=== PATIENT | female | born 1945 | race Caucasian/White ===

== ENCOUNTER 2022-06-09 08:57 | Inpatient (IN) | payer MEDICARE, OTHER ==
[~2022-06-09] VITALS: Ht 154.9 cm; Wt 68.0 kg
[2022-06-09] MEDS ORDERED: DILT180C90 PO (09:23)
[2022-06-09] MEDS ORDERED: FURO80TA3 PO (09:23)
[2022-06-09] MEDS ORDERED: LOSA100T31 PO (09:23)
[2022-06-09] MEDS ORDERED: AMLO-212 PO (09:23)
[2022-06-09] MEDS ORDERED: POTA10CA43 PO (09:23)
[2022-06-09] MEDS ORDERED: APIX5TAB4 PO (09:23)
[2022-06-09] MEDS ORDERED: DILTIAZEM HCL 25 MG IV IV ONE (09:30)
[2022-06-09] MEDS ORDERED: FUROSEMIDE 40 MG/4 ML VIAL IV ONE (09:30)
[2022-06-09 09:34] LABS: HEMATOCRIT 35.4 % (31.2-41.9); MEAN CORPUSCULAR HEMOGLOBIN 20.7 uug (24.7-32.8); MEAN CORPUSCULAR VOLUME 66.9 fL (75.5-95.3); PLATELET COUNT (AUTO) 118 K/uL (179-408)
[2022-06-09] MEDS ORDERED: FUROSEMIDE 40 MG/4 ML VIAL ONE (09:37)
[2022-06-09] MEDS ORDERED: DILTIAZEM HCL 50 MG IV ONE (09:38)
[2022-06-09 09:45] LABS: CARBON DIOXIDE 26 mmol/L (21-32); CHLORIDE 103 mmol/L (98-107); CREATININE 0.8 mg/dL (0.6-1.3); GLUCOSE 122 mg/dL (74-106); POTASSIUM 3.6 mmol/L (3.5-5.1); UREA NITROGEN, BLOOD 16 mg/dL (7-18)
[2022-06-09] MEDS ORDERED: DILTIAZEM HCL CD 180 MG CAP.SR.24H PO SCH (09:45)
--- NOTE | 2022-06-09 09:45 | NUR ---
Pt resting in gurney in room 1B, denies any chest or SOB, NAD noted. Pt was medicated with Cardizem and Lasix as ordered. Plan of care was discussed with pt and her son (who is at bedside) by ER physician.
[2022-06-09 09:50] LABS: *BILIRUBIN,URIN NEGATIVE (NEGATIVE); *CLARITY,URINE CLEAR (CLEAR); *COLOR,URINE YELLOW (YELLOW); *KETONES,URINE NEGATIVE (NEGATIVE); *UROBILINOGEN,URINE 0.2 E.U./dl (NORMAL); LEUKOCYTE ESTERASE ,URINE NEGATIVE (NEGATIVE); NITRITE, URINE NEGATIVE (NEGATIVE); UGLUCOSE NEGATIVE (NEGATIVE)
--- NOTE | 2022-06-09 09:50 | NUR ---
at bedside speaking with patient and son about plan of care. Called tele floor for bed assignment, charge nurse to call back.
[2022-06-09 09:51] LABS: *BLOOD, URINE TRACE (NEGATIVE)
[2022-06-09 10:02] LABS: ALANINE AMINOTRANSFERASE 17 U/L (14-59); ALKALINE PHOSPHATASE 90 U/L (50-136); ASPARTATE AMINOTRANSFERASE 21 U/L (15-37); BILIRUBIN,DIRECT 0.3 mg/dL (0.0-0.2); BILIRUBIN,TOTAL 1.3 mg/dL (0.2-1.0); TOTAL PROTEIN, SERUM 8.4 g/dL (6.4-8.2)
--- NOTE | 2022-06-09 10:15 | NUR ---
Called tele floor again for tele bed assignment, charge nurse to call back.
--- NOTE | 2022-06-09 10:24 | NUR ---
Patient bed assignment: Room 323
[2022-06-09] MEDS ORDERED: POTASSIUM CHLORIDE 20 MEQ POWDER PACKET GT ONE (10:30)
--- NOTE | 2022-06-09 10:40 | NUR ---
SBAR report given to REHAN Baker via telephone.
--- NOTE | 2022-06-09 10:45 | NUR ---
REPORT RECEIVED FROM SERENITY DONG RN. PT PRESENTED TO ER WITH DRY COUGH AND EDEMA OF LLE. PT WAS DX WITH CHF AND AFIB. PT IS FROM HOME LIVING ALONE. PT IS AOX4. AMBULATORY, FARCI SPEAKING. SKIN INTACT. MEREDITH LLE PITTING EDEMA NOTED. PLAN OF CARE WAS TO DIURESE AND DO ADRIEN AND CARDIOVERSION THIS WEEK. PT WILL BE ADMITED TO TELE. [facility] WILL F/U CARE.
--- NOTE | 2022-06-09 11:00 | NUR ---
Pt trans to tele room 323, NAD noted.
--- NOTE | 2022-06-09 11:10 | NUR ---
PT ARRIVED AT THE UNIT VIA WHEELCHAIR.
[2022-06-09] MEDS ORDERED: POTASSIUM CHLORIDE 20 MEQ TAB.PRT.SR PO ONE (11:15)
[2022-06-09 12:00] VITALS: BP 145/90
[2022-06-09 15:05] LABS: BACTERIA,URINE MODERATE /HPF (NONE SEEN); RBC,URINE 0-3 /HPF (0-3); WBC,URINE NONE SEEN /HPF (0-3)
[2022-06-09 15:06] LABS: SQUAMOUS EPITHELIAL CELL,UR MODERATE /HPF (NONE SEEN)
[2022-06-09 16:20] VITALS: BP 99/72
[2022-06-09] MEDS ORDERED: LORA-258 PO (16:54)
[2022-06-09] MEDS ORDERED: vitamin d2 PO (16:54)
[2022-06-09] MEDS ORDERED: Medication Not On Formulary EA (Apixaban (Eliquis) 5 MG) PO SCH (17:00)
--- NOTE | 2022-06-09 18:30 | NUR ---
PT AOX4. AMBULATORY, VITALS WNL. DENIES ANY PAIN, SOB, NAUSEA AND VOMITING. SKIN INTACT. AFIB CONTROLLED W/ RATE OF 70-80 ON MONITOR. +1 PITTING MEREDITH LLE EDEMA NOTED. PT IS ON STICT I&O PER MD. ADRIEN WAS SCHEDULED ON Tue. ALL NEEDS MET. BED LOCKED. WILL ENDORSED TO NOC SHIFT.
--- NOTE | 2022-06-09 19:30 | NUR ---
Received patient lying in bed. Family at bedside. AAOx4. In no acute distress. Denies any SOB. Stated pain on back tolerable at this time. A. fib on tele with HR of 74/min. Midline on right upper arm intact and patent. IVF infusing. Safety measure initiated and call light within reached. Addendum: 06/09/22 at 4092 by MARIBEL ABURTO RN Wrong patient.
--- NOTE | 2022-06-09 19:30 | NUR ---
Received patient lying in bed. Family at bedside. AAOx4. In no acute distress. Denies any pain or SOB.A. fib on tele with HR of 74/min. PIV on left AC intact and patent. Safety measure initiated and call light within reached.
--- NOTE | 2022-06-09 19:34 | NUR ---
FLUID RESTRICTION 1000ML PER DAY PER MD
[2022-06-09 20:00] VITALS: BP 123/80
[2022-06-09] MEDS: FUROSEMIDE 40 MG/4 ML VIAL IV SCH (20:14)
[2022-06-09] MEDS: APIXABAN 5 MG TABLET PO SCH (20:15)
[2022-06-10 00:07] VITALS: BP 131/68
--- NOTE | 2022-06-10 05:24 | NUR ---
Patient slept well during the night. In no acute distress. No complain of pain or SOB. Controlled A. fib on tele with HR of 71/min. Needs attended to and met. Safety measure maintained and call light within reached.
[2022-06-10 05:49] VITALS: BP 134/79
[2022-06-10 07:09] LABS: HEMATOCRIT 32.8 % (31.2-41.9); MEAN CORPUSCULAR HEMOGLOBIN 20.9 uug (24.7-32.8); MEAN CORPUSCULAR VOLUME 66.9 fL (75.5-95.3); PLATELET COUNT (AUTO) 106 K/uL (179-408)
[2022-06-10 07:25] LABS: POTASSIUM 4.4 mmol/L (3.5-5.1)
[2022-06-10 07:30] LABS: BILIRUBIN,TOTAL 1.1 mg/dL (0.2-1.0); MAGNESIUM 2.2 mg/dL (1.8-2.4); TOTAL PROTEIN, SERUM 7.4 g/dL (6.4-8.2)
[2022-06-10 07:39] LABS: THYROID STIMULATING HORMONE 1.818 mIU/mL (0.358-3.740)
[2022-06-10] MEDS ORDERED: DILTIAZEM HCL CD 180 MG CAP.SR.24H PO SCH (09:00)
[2022-06-10] MEDS ORDERED: LOSARTAN POTASSIUM 50 MG TABLET PO SCH (09:00)
[2022-06-10] MEDS: FUROSEMIDE 40 MG/4 ML VIAL IV SCH ×2 (09:28→21:12)
[2022-06-10] MEDS: APIXABAN 5 MG TABLET PO SCH ×2 (09:29→21:11)
[2022-06-10] MEDS: LOSARTAN POTASSIUM 50 MG TABLET PO SCH (09:31)
--- NOTE | 2022-06-10 11:36 | NUR ---
ADRIEN with cardioversion at 0630 am. consent signed by the pt. NPO except meds after 2230. per dr. leigh. Addendum: 06/10/22 at 1757 by NICA CLARKE RN NPO EXCEPT MEDS AFTER 2230PM
[2022-06-10 12:00] VITALS: BP 115/79
[2022-06-10 16:00] VITALS: BP 126/76
[2022-06-10 20:00] VITALS: BP 146/74
--- NOTE | 2022-06-11 05:50 | NUR ---
TAKEN TO HAVE ADRIEN
[2022-06-11] MEDS ORDERED: LIDOCAINE-MPF 2% 5 ML VIAL IJ ONE (06:47)
[2022-06-11] MEDS ORDERED: PROPOFOL 200 MG/20 ML BOTTLE IV ONE (06:47)
--- NOTE | 2022-06-11 07:04 | NUR ---
REPORT GIVEN TO REHAN FERRARA
[2022-06-11 07:58] VITALS: BP 138/75
--- NOTE | 2022-06-11 08:00 | NUR ---
PT CAME BACK FROM PACU. ADRIEN WITH CARDIOVERSION DONE BY DR. CARLIN. REPORT RECEIVED FROM RINKU Yun RN. PT AOX 4. DENIES ANY PAIN OR DISCOMFORT. NO SOB NOTED. PT IS ON ROOM AIR. SUCCESSFUL CARDIOVERSION . PT IS NOW SR WITH 1ST HB ON THE MONITOR. VITALS WNL. RESUME CARDIAC DIET PER .
[2022-06-11 08:59] LABS: HEMATOCRIT 32.9 % (31.2-41.9); MEAN CORPUSCULAR HEMOGLOBIN 20.8 uug (24.7-32.8); MEAN CORPUSCULAR VOLUME 67.2 fL (75.5-95.3); PLATELET COUNT (AUTO) 107 K/uL (179-408)
[2022-06-11] MEDS ORDERED: DILTIAZEM HCL CD 180 MG CAP.SR.24H PO SCH (09:00)
[2022-06-11 09:06] LABS: CREATININE 0.9 mg/dL (0.6-1.3); MAGNESIUM 2.2 mg/dL (1.8-2.4); PHOSPHOROUS 3.7 mg/dL (2.5-4.9); POTASSIUM 3.5 mmol/L (3.5-5.1)
[2022-06-11] MEDS: LOSARTAN POTASSIUM 50 MG TABLET PO SCH (09:52)
[2022-06-11] MEDS: FUROSEMIDE 40 MG/4 ML VIAL IV SCH ×2 (09:52→20:33)
[2022-06-11] MEDS: DILTIAZEM HCL CD 120 MG CAP.SR.24H PO SCH (09:52)
[2022-06-11] MEDS: APIXABAN 5 MG TABLET PO SCH ×2 (09:53→20:32)
[2022-06-11] MEDS: DRONEDARONE HYDROCHLORIDE 400 MG TABLET PO SCH ×2 (09:56→18:12)
[2022-06-11 12:00] VITALS: BP 122/75
[2022-06-11] MEDS ORDERED: POTASSIUM CHLORIDE 20 MEQ TAB.PRT.SR PO ONE (13:15)
[2022-06-11] MEDS ORDERED: POTASSIUM CHLORIDE 20 MEQ POWDER PACKET GT ONE (13:15)
[2022-06-11 16:00] VITALS: BP 123/66
--- NOTE | 2022-06-11 18:58 | NUR ---
pt aox4. in no acute distress. ADRIEN w/ cardioversion done by dr. leigh early am. pt denies pain, nausea and vomiting. pt state " she was much feeling better after the procedure". pt is sinus w/ 1st hb on tele with a rate of 80s-90's. LLE tete +1 pitting edema noted bu getting better. pt still on diuretics. 1000ml fluid restriction in placed. urine output 725ml. possible dc tan f/u w/ cm. all needs met. bed locked. will endorsed to noc shift.
--- NOTE | 2022-06-11 19:30 | NUR ---
Received patient lying in bed. AAOx4. In no acute distress. Denies any pain or SOB. NSR with 1st degree AVB on tele with HR of 97/min. PIV on right hand intact and patent. Safety measure initiated and call light within reached.
[2022-06-11 20:00] VITALS: BP 121/74
[2022-06-12] VITALS: BP 109/69
[2022-06-12 04:00] VITALS: BP 130/83
--- NOTE | 2022-06-12 05:16 | NUR ---
Patient slept through out the night. In no acute distress. No complain of pain or SOB. NSR with 1st degree AVB on tele with HR of 83/min. Needs attended to and met. Safety measure maintained and call light within reached.
[2022-06-12 08:00] VITALS: BP 130/83
[2022-06-12 08:33] LABS: HEMATOCRIT 35.3 % (31.2-41.9); MEAN CORPUSCULAR HEMOGLOBIN 20.7 uug (24.7-32.8); MEAN CORPUSCULAR VOLUME 66.6 fL (75.5-95.3); PLATELET COUNT (AUTO) 97 K/uL (179-408)
[2022-06-12 08:47] LABS: MAGNESIUM 2.3 mg/dL (1.8-2.4)
[2022-06-12] MEDS: DILTIAZEM HCL CD 120 MG CAP.SR.24H PO SCH (08:53)
[2022-06-12] MEDS: LOSARTAN POTASSIUM 50 MG TABLET PO SCH (08:53)
[2022-06-12] MEDS: DRONEDARONE HYDROCHLORIDE 400 MG TABLET PO SCH (08:54)
[2022-06-12] MEDS: APIXABAN 5 MG TABLET PO SCH (08:55)
[2022-06-12] MEDS ORDERED: AMIODARONE HCL IV 150 MG in IV DEXTROSE 5% 100 ML IV ONE (09:15)
--- NOTE | 2022-06-12 09:40 | NUR ---
pt convert to afib for few min then convert back to sinus rhythm. md notified. new order of cordarone bolus was ordered.
[2022-06-12 10:10] VITALS: BP 133/75
--- NOTE | 2022-06-12 10:15 | NUR ---
pt was transferred to SHEMAR status for cordarone administration per pharmacy.
[2022-06-12 10:25] VITALS: BP 118/70
--- NOTE | 2022-06-12 10:29 | NUR ---
post Cordarone IV bolus. pt asymptomatic. no acute distress noted. vitals 118/70 97%sat 89HR 15resp.
[2022-06-12 10:49] VITALS: BP 112/67
--- NOTE | 2022-06-12 11:29 | NUR ---
pt transfer back to tele per md. pt symptomatic. vitals wnl. sinus rhythm on tele . HR sustained to 80s. md aware. okayed to dc per lockstitch sleeve setter.
--- NOTE | 2022-06-12 13:38 | NUR ---
PT IS DISCHARGE. PT ALERT ORIENTED. HEMODYNAMICALLY STABLE. SINUS RHYTHM ON TELE MONITOR. VITALS WNL. AMBULATORY WITH STEADY GAIT. EXIT CARE PROVIDED. DISCHARGE INSTRUCTION WAS RELAYED TO PT. SON AND GRAND DAUGHTER WAS INFORMED OF DISCHARGE. HOME MEDS RETURNED. ALL BELONGINGS ACCOUNTED FOR. 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 IV ACCESS REMOVED. ALL NEEDS ATTENDED.
== END 2022-06-12 14:15 | disposition home or self-care (01) | DRG 291 ==
LOC: ER 08:57 → TELE3 10:43 → TELE-TD3 06-12 10:01 → TELE3 06-12 11:35
PROVIDERS: ADMIT Registered Nurse; ATTEND Registered Nurse
PROC: B245ZZ4 Ultrasonography of Left Heart, Transesophageal (ICD-10-PCS; 2022-06-09)
PROC: 5A2204Z Restoration of Cardiac Rhythm, Single (ICD-10-PCS; principal; 2022-06-11)
DX: I11.0 Hypertensive heart disease with heart failure (principal); I50.33 Acute on chronic diastolic (congestive) heart failure; I48.19 Other persistent atrial fibrillation; J90 Pleural effusion, not elsewhere classified; D69.6 Thrombocytopenia, unspecified; I87.2 Venous insufficiency (chronic) (peripheral); I25.10 Atherosclerotic heart disease of native coronary artery without angina pectoris; Z79.899 Other long term (current) drug therapy; Z20.822 Contact with and (suspected) exposure to COVID-19; I08.2 Rheumatic disorders of both aortic and tricuspid valves; Z86.19 Personal history of other infectious and parasitic diseases; Z87.440 Personal history of urinary (tract) infections; E66.9 Obesity, unspecified; Z68.28 Body mass index [BMI] 28.0-28.9, adult; Z79.01 Long term (current) use of anticoagulants
CPT/HCPCS: 36415; 71045; 83735; 84100; 84443; 84484; 85025; 85730; 93005; 93307; 93312; A4663; G0378; J0282; J1940; J3490; J7040